=== PATIENT | male | born 1995 | race Caucasian/White ===

== ENCOUNTER 2018-06-19 02:27 | Emergency (ER) | payer SELFPAY ==
[~2018-06-19] VITALS: Ht 198.1 cm; Wt 117.9 kg
[2018-06-19 02:33] VITALS: Ht 198.1 cm; Wt 117.9 kg
[2018-06-19 03:12] LABS: BASOPHIL % 0.6 % (0-2); PLATELET COUNT 275 x10^3mcL (130-400); RED CELL DISTRIBUTION WIDTH 13.5 % (11.5-14.5)
[2018-06-19 03:31] LABS: CALCIUM 10.1 mg/dL (8.5-10.1); CARBON DIOXIDE 21.5 mmol/L (21-32); CHLORIDE SERUM 100 mmol/L (98-107); CREATININE SERUM 1.1 mg/dL (0.7-1.3); GFR1 > 60 mL/min; GLUCOSE SERUM 351 mg/dL (74-106); POTASSIUM SERUM 4.2 mmol/L (3.5-5.1); SODIUM SERUM 137 mmol/L (136-145)
[2018-06-19 03:36] LABS: ALBUMIN 4.3 g/dL (3.4-5.0); ALKALINE PHOSPHATASE 168 U/L (46-116); ALT/SGPT 67 U/L (16-63); AST/SGOT 44 U/L (15-37); BILIRUBIN TOTAL 0.28 mg/dL (0.20-1.00); LIPASE 63 IU/L (73-393); TOTAL PROTEIN, SERUM 8.1 g/dL (6.4-8.2)
[2018-06-19 06:00] VITALS: BP 117/69
== END 2018-06-19 06:00 | disposition home or self-care (01) ==
LOC: ED 02:27
PROVIDERS: Emergency Medicine
DX: F10.129 Alcohol abuse with intoxication, unspecified (principal); K29.20 Alcoholic gastritis without bleeding
CPT/HCPCS: G0480; J2060; J2405; J3490